=== PATIENT | female | born 1985 | race American Indian/Alaskan Native ===

== ENCOUNTER 2017-02-06 15:58 | Outpatient (CLI) | payer OTHER ==
--- NOTE | 2017-02-06 16:16 | XRay Report ---
XRAY RIGHT ANKLE THREE VIEWS: 02/06/17 15:58:00 CLINICAL: Pain. FINDINGS: A very large soft tissue medial and posterior soft tissue mass with no bony abnormality. No bone erosion, no periosteal reaction and no soft tissue calcifications. The bones of the hindfoot and midfoot are normal. The distal tibia and fibula are normal. No fracture or dislocation. The ankle mortise is intact. 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 No bone or joint abnormality.
== END 2017-02-06 15:59 | disposition home or self-care (01) ==
LOC: SPVIMAG 15:58
PROVIDERS: ATTEND Orthopaedic Surgery Sports Medicine
DX: M79.671 Pain in right foot (principal)